=== PATIENT | male | born 1970 | race Two or more races ===

== ENCOUNTER 2018-08-23 13:59 | Emergency (ER) | payer BC, MEDICAID, OTHER ==
[~2018-08-23] VITALS: Ht 170.2 cm; Wt 81.6 kg
[2018-08-23 15:40] LABS: Urine Bacteria NONE SEEN /hpf (None Seen); Urine Blood TRACE /uL (Negative); Urine Specific Gravity 1.016 (1.001-1.035); Urine Sperm PRESENT /hpf (None Seen); Urine WBC 94 /hpf (0 - 3)
[2018-08-23 19:34] LABS: Basophils # (auto) 0.1 uL; Basophils % (auto) 0.7 % (0.0-2.0); Eosinophils # (auto) 0.3 uL; Eosinophils % (auto) 2.6 % (0.0-7.0); Hematocrit 43.1 % (41.0-53.0); Hemoglobin 14.1 g/dL (13.5-17.5); Lymphocytes # (auto) 2.4 uL; Lymphocytes % (auto) 22.6 % (10.0-50.0); Mean Corpuscular Hemoglobin 29.7 pg (28.0-32.0); Mean Corpuscular Hgb Conc. 32.8 g/dL (32.0-36.0); Mean Corpuscular Volume 90.4 fL (80.0-100.0); Monocytes # (auto) 0.8 uL; Monocytes % (auto) 7.4 % (0.0-12.0); Neutrophils % (auto) 66.7 % (37.0-80.0); Nucleated Red Blood Cells % 0.1 %; Platelet Count (auto) 316 10^3/uL (140-450); Red Blood Cells 4.77 10^6/uL (4.5-5.90); Red Cell Distribution Width 14.3 % (11.8-14.3); White Blood Cell 10.6 10^3/uL (4.4-10.8)
[2018-08-23 19:48] LABS: INR 1.03 (0.9-1.15)
[2018-08-23 19:53] LABS: Albumin 3.2 g/dL (3.4-5.0); Calcium 8.5 mg/dL (8.5-10.1); Potassium 3.8 mmol/L (3.5-5.1)
[2018-08-23 19:56] LABS: BUN/Creatinine Ratio 15.1; Bilirubin, Total 0.3 mg/dL (0.2-1.0); Total Protein 7.2 g/dL (6.4-8.2)
[2018-08-23 22:08] VITALS: BP 115/79
== END 2018-08-23 20:13 | disposition left against medical advice (07) ==
LOC: ER 14:11
DX: R30.9 Painful micturition, unspecified (principal); Z53.21 Procedure and treatment not carried out due to patient leaving prior to being seen by health care provider
CPT/HCPCS: 36415; 74176; 80053; 81001; 85025; 85610; 85730

== ENCOUNTER 2018-08-25 09:58 | Emergency (ER) | payer MEDICAID ==
[~2018-08-25] VITALS: Ht 170.2 cm; Wt 68.0 kg
[2018-08-25 10:11] VITALS: BP 128/96
== END 2018-08-25 13:54 | disposition left against medical advice (07) ==
LOC: ER 09:58
DX: R10.30 Lower abdominal pain, unspecified (principal); K92.1 Melena; K62.89 Other specified diseases of anus and rectum; E11.9 Type 2 diabetes mellitus without complications; I10 Essential (primary) hypertension; Z53.29 Procedure and treatment not carried out because of patient's decision for other reasons; Z88.2 Allergy status to sulfonamides

== ENCOUNTER 2018-12-28 15:04 | Emergency (ER) | payer MEDICAID ==
[~2018-12-28] VITALS: Ht 170.2 cm; Wt 68.0 kg
[2018-12-28 15:19] VITALS: BP 133/102
[2018-12-28 16:04] LABS: Albumin 3.8 g/dL (3.4-5.0); Anion Gap 9 (5-15); Calcium 8.6 mg/dL (8.5-10.1); Carbon Dioxide 26 mmol/L (21-32); Chloride 104 mmol/L (98-107); Glucose 134 mg/dL (74-106); Potassium 3.2 mmol/L (3.5-5.1); Sodium 139 mmol/L (136-145)
[2018-12-28 16:10] LABS: Alanine Aminotransferase 27 U/L (16-61); Alkaline Phosphatase 74 U/L (45-117); Aspartate Aminotransferase 18 U/L (15-37); BUN/Creatinine Ratio 14.4; Bilirubin, Total 0.5 mg/dL (0.2-1.0); Blood Urea Nitrogen 13 mg/dL (7-18); GFR African American 115 mL/min; GFR Non-African American 95 mL/min; Total Protein 7.7 g/dL (6.4-8.2)
[2018-12-28 16:23] LABS: Basophils # (auto) 0.1 uL; Basophils % (auto) 0.7 % (0.0-2.0); Eosinophils # (auto) 0.2 uL; Eosinophils % (auto) 1.7 % (0.0-7.0); Hematocrit 45.7 % (41.0-53.0); Hemoglobin 15.4 g/dL (13.5-17.5); Lymphocytes # (auto) 2.4 uL; Lymphocytes % (auto) 21.2 % (10.0-50.0); Mean Corpuscular Hemoglobin 30.1 pg (28.0-32.0); Mean Corpuscular Hgb Conc. 33.7 g/dL (32.0-36.0); Mean Corpuscular Volume 89.3 fL (80.0-100.0); Monocytes % (auto) 8.4 % (0.0-12.0); Neutrophils # (auto) 7.8 uL; Platelet Count (auto) 320 10^3/uL (140-450); Red Blood Cells 5.12 10^6/uL (4.5-5.90); Red Cell Distribution Width 14.4 % (11.8-14.3); White Blood Cell 11.5 10^3/uL (4.4-10.8)
[2018-12-28 17:09] LABS: Urine Bacteria NONE SEEN /hpf (None Seen); Urine Blood Negative /uL (Negative); Urine Mucus FEW (None Seen); Urine Specific Gravity 1.017 (1.001-1.035); Urine WBC 1 /hpf (0 - 3)
== END 2018-12-28 18:45 | disposition home or self-care (01) ==
LOC: ER 15:11
DX: M54.12 Radiculopathy, cervical region (principal); E11.9 Type 2 diabetes mellitus without complications; I10 Essential (primary) hypertension; Z88.2 Allergy status to sulfonamides
CPT/HCPCS: 36415; 71046; 80053; 81001; 84484; 85025; 93005

== ENCOUNTER 2024-01-09 16:01 | Emergency (ER) | payer MEDICAID ==
[~2024-01-09] VITALS: Ht 167.6 cm; Wt 63.3 kg
[~2024-01-09 16:01] MED LIST: IBUP-1456 PO; METH-1182 PO
[2024-01-09 17:07] LABS: Urine Bacteria None Seen /hpf (None Seen)
[2024-01-09 17:28] LABS: Urine Blood 1+ /uL (Negative); Urine Clarity Clear (Clear); Urine Color Yellow (Yellow); Urine Hyaline Cast FEW /lpf (0 - 2); Urine Mucus FEW (None Seen); Urine Protein, UAD 1+ (Negative); Urine Specific Gravity 1.025 (1.001-1.035); Urine Urobilinogen Normal (Negative); Urine WBC 1 /hpf (0 - 3); Urine pH 6.5 (5.0-9.0)
[2024-01-09 17:51] VITALS: BP 123/87; TEMP 98.1
[2024-01-09] MEDS ORDERED: CEFP200T15 PO (18:32)
[2024-01-09 18:42] VITALS: PULSE 90; RESP 16; O2SAT 98
== END 2024-01-09 18:44 | disposition home or self-care (01) ==
LOC: ER 16:04
DX: N12 Tubulo-interstitial nephritis, not specified as acute or chronic (principal); E11.9 Type 2 diabetes mellitus without complications; I10 Essential (primary) hypertension; Z88.2 Allergy status to sulfonamides
CPT/HCPCS: 81001